=== PATIENT | male | born 1980 | race Caucasian/White ===

== ENCOUNTER 2022-08-10 14:22 | Inpatient (IN) | payer OTHER ==
[2022-08-10 16:32] VITALS: BMI 23.4
[2022-08-10] MEDS ORDERED: ONDANSETRON *ODT* 4 MG TABLET SL PRN (19:12)
[2022-08-10] MEDS ORDERED: BISMUTH SUBSALICYLATE 524 MG/30 ML PO PRN (19:12)
[2022-08-10] MEDS ORDERED: ACETAMINOPHEN 325 MG TABLET (FP) PO PRN (19:12)
[2022-08-10] MEDS ORDERED: BENZOCAINE/MENTHOL (CHLORASEPTIC ) LOZENGE MM PRN (19:12)
[2022-08-10] MEDS ORDERED: MAGNESIUM CITRATE 300 ML BOTTLE PO PRN (19:12)
[2022-08-10] MEDS ORDERED: NICOTINE 10 MG CARTRIDGE (INHALER) IH PRN (19:12)
[2022-08-10] MEDS ORDERED: LOPERAMIDE HCL 2 MG CAPSULE PO PRN (19:12)
[2022-08-10] MEDS ORDERED: DICYCLOMINE HCL 10 MG CAPSULE PO PRN (19:12)
[2022-08-10] MEDS ORDERED: chlordiazePOXIDE HCL 25 MG CAPSULE PO PRN (19:12)
[2022-08-10] MEDS ORDERED: chlordiazePOXIDE HCL 25 MG CAPSULE PO SCH (23:00)
[2022-08-11] MEDS: MELATONIN 5 MG TABLETS PO SCH ×2 (00:37→22:29)
[2022-08-11] MEDS: THIAMINE HCL 100 MG TABLET (FP) PO SCH ×2 (00:38→22:29)
[2022-08-11] MEDS: METHOCARBAMOL 500 MG TABLET PO PRN (00:38)
[2022-08-11] MEDS: hydrOXYzine PAMOATE 25 MG CAPSULE (FP) PO PRN (00:38)
[2022-08-11] MEDS: IBUPROFEN 600 MG TABLET (FP) PO PRN (00:39)
[2022-08-11] MEDS: chlordiazePOXIDE HCL 25 MG CAPSULE PO SCH ×5 (00:46→22:29)
[2022-08-11] MEDS: PRENATAL VITAMINS W/ FOLIC ACID TABLET (FP) PO SCH (10:50)
[2022-08-11] MEDS: NICOTINE 7 MG/24 HOURS TOPICAL PATCH TD SCH (10:52)
[2022-08-11 14:11] LABS: HEMATOCRIT 43.2 % (35.4-49); HEMOGLOBIN 14.1 GM/dL (11.7-16.9); MCH 28.8 pg (25.7-33.7); MCHC 32.7 g/dl (32.0-35.9); MEAN CELL VOLUME 88.1 fl (80-96); MEAN PLT VOLUME 7.7 fl (7.5-11.1); PLATELET COUNT 338 10^3/uL (134-434); RDW 13.6 % (11.9-15.9); WHITE BLOOD COUNT 3.1 K/mm3 (4.0-10.0)
[2022-08-11 14:28] LABS: BLOOD UREA NITROGEN 18.8 mg/dL (7-18); CALCIUM 8.5 mg/dL (8.5-10.1); CREATININE 0.8 mg/dL (0.55-1.3)
[2022-08-11 14:29] LABS: ALBUMIN 3.2 g/dl (3.4-5.0)
[2022-08-11 14:30] LABS: BILIRUBIN,TOTAL 0.2 mg/dL (0.2-1); TOT PROT 5.7 g/dl (6.4-8.2)
[2022-08-12] MEDS: chlordiazePOXIDE HCL 25 MG CAPSULE PO SCH ×4 (05:39→22:13)
[2022-08-12] MEDS: PRENATAL VITAMINS W/ FOLIC ACID TABLET (FP) PO SCH (10:41)
[2022-08-12] MEDS: NICOTINE 7 MG/24 HOURS TOPICAL PATCH TD SCH (10:41)
[2022-08-12] MEDS: MELATONIN 5 MG TABLETS PO SCH (22:12)
[2022-08-12] MEDS: THIAMINE HCL 100 MG TABLET (FP) PO SCH (22:12)
[2022-08-12] MEDS: SUVOREXANT 10 MG TABLET PO PRN (22:14)
[2022-08-13] MEDS ORDERED: chlordiazePOXIDE HCL 10 MG CAPSULE PO PRN
[2022-08-13] MEDS: chlordiazePOXIDE HCL 10 MG CAPSULE PO SCH ×4 (06:19→22:21)
[2022-08-13] MEDS: IBUPROFEN 400 MG TABLET (FP) PO PRN ×2 (06:19→22:19)
[2022-08-13] MEDS: METHOCARBAMOL 500 MG TABLET PO PRN ×2 (10:12→22:20)
[2022-08-13] MEDS: NICOTINE 7 MG/24 HOURS TOPICAL PATCH TD SCH (10:12)
[2022-08-13] MEDS: PRENATAL VITAMINS W/ FOLIC ACID TABLET (FP) PO SCH (10:12)
[2022-08-13] MEDS: hydrOXYzine PAMOATE 25 MG CAPSULE (FP) PO PRN (10:12)
[2022-08-13] MEDS: IBUPROFEN 600 MG TABLET (FP) PO PRN (17:36)
[2022-08-13] MEDS: SUVOREXANT 10 MG TABLET PO PRN (22:19)
[2022-08-13] MEDS: MELATONIN 5 MG TABLETS PO SCH (22:21)
[2022-08-13] MEDS: THIAMINE HCL 100 MG TABLET (FP) PO SCH (22:21)
[2022-08-14] MEDS: hydrOXYzine PAMOATE 25 MG CAPSULE (FP) PO PRN (03:46)
[2022-08-14] MEDS: ACETAMINOPHEN 325 MG TABLET (FP) PO PRN ×2 (03:46→17:58)
[2022-08-14] MEDS: MAG HYDROX/AL HYDROX/SIMETH 30 ML UNIT-DOSE CUP PO PRN (03:46)
[2022-08-14] MEDS: chlordiazePOXIDE HCL 10 MG CAPSULE PO SCH ×2 (05:46→17:57)
[2022-08-14] MEDS: PRENATAL VITAMINS W/ FOLIC ACID TABLET (FP) PO SCH (09:56)
[2022-08-14] MEDS: NICOTINE 7 MG/24 HOURS TOPICAL PATCH TD SCH (09:57)
[2022-08-14] MEDS: MAGNESIUM HYDROX 2400MG/30ML ORAL SUSPENSION 30 ML CUP PO PRN (18:00)
[2022-08-14] MEDS: THIAMINE HCL 100 MG TABLET (FP) PO SCH (22:15)
[2022-08-14] MEDS: MELATONIN 5 MG TABLETS PO SCH (22:15)
[2022-08-14] MEDS: METHOCARBAMOL 500 MG TABLET PO PRN (22:15)
[2022-08-15] MEDS ORDERED: chlordiazePOXIDE HCL 10 MG CAPSULE PO ONE (05:00)
[2022-08-15] MEDS: PRENATAL VITAMINS W/ FOLIC ACID TABLET (FP) PO SCH (10:27)
[2022-08-15] MEDS: NICOTINE 7 MG/24 HOURS TOPICAL PATCH TD SCH (10:28)
[2022-08-15] MEDS: ACETAMINOPHEN 325 MG TABLET (FP) PO PRN (10:30)
[2022-08-15 12:49] VITALS: RESP 18
[2022-08-15] MEDS: MELATONIN 5 MG TABLETS PO SCH (22:00)
[2022-08-15] MEDS: THIAMINE HCL 100 MG TABLET (FP) PO SCH (22:00)
[2022-08-15] MEDS: IBUPROFEN 600 MG TABLET (FP) PO PRN (22:03)
[2022-08-15] MEDS: METHOCARBAMOL 500 MG TABLET PO PRN (22:04)
[2022-08-16] MEDS: MAG HYDROX/AL HYDROX/SIMETH 30 ML UNIT-DOSE CUP PO PRN (06:23)
[2022-08-16] MEDS: NICOTINE 7 MG/24 HOURS TOPICAL PATCH TD SCH (10:29)
[2022-08-16] MEDS: PRENATAL VITAMINS W/ FOLIC ACID TABLET (FP) PO SCH (10:29)
[2022-08-16] MEDS: hydrOXYzine PAMOATE 25 MG CAPSULE (FP) PO PRN (10:29)
[2022-08-16] MEDS: MAGNESIUM HYDROX 2400MG/30ML ORAL SUSPENSION 30 ML CUP PO PRN (10:32)
[2022-08-16] MEDS ORDERED: LACTULOSE 20 GM/30 ML UDC (FOR ORAL USE ONLY) PO ONE (21:10)
[2022-08-16] MEDS ORDERED: DOCUSATE SODIUM 100 MG CAPSULE (FP) PO ONE (21:10)
[2022-08-16] MEDS: MELATONIN 5 MG TABLETS PO SCH (21:33)
[2022-08-16] MEDS: THIAMINE HCL 100 MG TABLET (FP) PO SCH (21:34)
[2022-08-17] MEDS: IBUPROFEN 600 MG TABLET (FP) PO PRN ×2 (01:24→10:33)
[2022-08-17] MEDS: PRENATAL VITAMINS W/ FOLIC ACID TABLET (FP) PO SCH (10:31)
[2022-08-17] MEDS: hydrOXYzine PAMOATE 25 MG CAPSULE (FP) PO PRN (10:31)
[2022-08-17] MEDS: NICOTINE 7 MG/24 HOURS TOPICAL PATCH TD SCH (10:31)
[2022-08-17] MEDS: MAGNESIUM HYDROX 2400MG/30ML ORAL SUSPENSION 30 ML CUP PO PRN (10:32)
[2022-08-17] MEDS: IBUPROFEN 400 MG TABLET (FP) PO PRN (21:27)
[2022-08-17] MEDS: THIAMINE HCL 100 MG TABLET (FP) PO SCH (21:27)
[2022-08-17] MEDS: MELATONIN 5 MG TABLETS PO SCH (21:27)
[2022-08-17] MEDS: MAG HYDROX/AL HYDROX/SIMETH 30 ML UNIT-DOSE CUP PO PRN (21:29)
[2022-08-18] MEDS: NICOTINE 7 MG/24 HOURS TOPICAL PATCH TD SCH (10:18)
[2022-08-18] MEDS: PRENATAL VITAMINS W/ FOLIC ACID TABLET (FP) PO SCH (10:18)
[2022-08-18] MEDS: hydrOXYzine PAMOATE 25 MG CAPSULE (FP) PO PRN (10:19)
[2022-08-18] MEDS: ACETAMINOPHEN 325 MG TABLET (FP) PO PRN ×2 (10:20→21:45)
[2022-08-18] MEDS: MAGNESIUM HYDROX 2400MG/30ML ORAL SUSPENSION 30 ML CUP PO PRN ×2 (10:21→21:48)
[2022-08-18] MEDS: MELATONIN 5 MG TABLETS PO SCH (21:44)
[2022-08-18] MEDS: THIAMINE HCL 100 MG TABLET (FP) PO SCH (21:44)
[2022-08-19] MEDS: NICOTINE 7 MG/24 HOURS TOPICAL PATCH TD SCH (10:14)
[2022-08-19] MEDS: PRENATAL VITAMINS W/ FOLIC ACID TABLET (FP) PO SCH (10:14)
[2022-08-19] MEDS: hydrOXYzine PAMOATE 25 MG CAPSULE (FP) PO PRN ×2 (10:15→21:43)
[2022-08-19] MEDS: MELATONIN 5 MG TABLETS PO SCH (21:40)
[2022-08-19] MEDS: THIAMINE HCL 100 MG TABLET (FP) PO SCH (21:40)
[2022-08-19] MEDS: ACETAMINOPHEN 325 MG TABLET (FP) PO PRN (21:41)
[2022-08-20] MEDS: PRENATAL VITAMINS W/ FOLIC ACID TABLET (FP) PO SCH (10:05)
[2022-08-20] MEDS: hydrOXYzine PAMOATE 25 MG CAPSULE (FP) PO PRN ×2 (10:05→21:27)
[2022-08-20] MEDS: NICOTINE 7 MG/24 HOURS TOPICAL PATCH TD SCH (10:05)
[2022-08-20] MEDS: ACETAMINOPHEN 325 MG TABLET (FP) PO PRN ×2 (10:07→21:28)
[2022-08-20] MEDS: THIAMINE HCL 100 MG TABLET (FP) PO SCH (21:27)
[2022-08-20] MEDS: MELATONIN 5 MG TABLETS PO SCH (21:27)
[2022-08-21] MEDS: NICOTINE 7 MG/24 HOURS TOPICAL PATCH TD SCH (10:21)
[2022-08-21] MEDS: PRENATAL VITAMINS W/ FOLIC ACID TABLET (FP) PO SCH (10:21)
[2022-08-21] MEDS: ACETAMINOPHEN 325 MG TABLET (FP) PO PRN ×2 (10:22→21:23)
[2022-08-21] MEDS: hydrOXYzine PAMOATE 25 MG CAPSULE (FP) PO PRN (10:23)
[2022-08-21] MEDS: MELATONIN 5 MG TABLETS PO SCH (21:23)
[2022-08-21] MEDS: THIAMINE HCL 100 MG TABLET (FP) PO SCH (21:23)
[2022-08-22] MEDS: hydrOXYzine PAMOATE 25 MG CAPSULE (FP) PO PRN ×3 (01:59→21:27)
[2022-08-22] MEDS: PRENATAL VITAMINS W/ FOLIC ACID TABLET (FP) PO SCH (10:10)
[2022-08-22] MEDS: NICOTINE 7 MG/24 HOURS TOPICAL PATCH TD SCH (10:10)
[2022-08-22] MEDS: ACETAMINOPHEN 325 MG TABLET (FP) PO PRN (10:11)
[2022-08-22] MEDS: LIDOCAINE 5% TOPICAL PATCH TP SCH (15:59)
[2022-08-22] MEDS: MELATONIN 5 MG TABLETS PO SCH (21:25)
[2022-08-22] MEDS: THIAMINE HCL 100 MG TABLET (FP) PO SCH (21:26)
[2022-08-22] MEDS: IBUPROFEN 600 MG TABLET (FP) PO PRN (21:28)
[2022-08-22] MEDS: LIDOCAINE PATCH REMOVAL MC SCH (21:34)
[2022-08-23] MEDS: PRENATAL VITAMINS W/ FOLIC ACID TABLET (FP) PO SCH (10:22)
[2022-08-23] MEDS: NICOTINE 7 MG/24 HOURS TOPICAL PATCH TD SCH (10:22)
[2022-08-23] MEDS: LIDOCAINE 5% TOPICAL PATCH TP SCH (10:23)
[2022-08-23] MEDS: ACETAMINOPHEN 325 MG TABLET (FP) PO PRN (10:24)
[2022-08-23] MEDS: hydrOXYzine PAMOATE 25 MG CAPSULE (FP) PO PRN ×3 (10:25→21:36)
[2022-08-23] MEDS: LIDOCAINE PATCH REMOVAL MC SCH (21:35)
[2022-08-23] MEDS: MELATONIN 5 MG TABLETS PO SCH (21:36)
[2022-08-23] MEDS: THIAMINE HCL 100 MG TABLET (FP) PO SCH (21:36)
[2022-08-24] MEDS: PRENATAL VITAMINS W/ FOLIC ACID TABLET (FP) PO SCH (10:20)
[2022-08-24] MEDS: LIDOCAINE 5% TOPICAL PATCH TP SCH (10:20)
[2022-08-24] MEDS: ACETAMINOPHEN 325 MG TABLET (FP) PO PRN ×2 (10:21→21:29)
[2022-08-24] MEDS: hydrOXYzine PAMOATE 25 MG CAPSULE (FP) PO PRN ×2 (10:21→21:28)
[2022-08-24] MEDS: NICOTINE 7 MG/24 HOURS TOPICAL PATCH TD SCH (10:21)
[2022-08-24] MEDS: THIAMINE HCL 100 MG TABLET (FP) PO SCH (21:28)
[2022-08-24] MEDS: MELATONIN 5 MG TABLETS PO SCH (21:29)
[2022-08-24] MEDS: LIDOCAINE PATCH REMOVAL MC SCH (21:32)
[2022-08-25] MEDS: PRENATAL VITAMINS W/ FOLIC ACID TABLET (FP) PO SCH (10:05)
[2022-08-25] MEDS: NICOTINE 7 MG/24 HOURS TOPICAL PATCH TD SCH (10:06)
[2022-08-25] MEDS: LIDOCAINE 5% TOPICAL PATCH TP SCH (10:06)
[2022-08-25] MEDS: hydrOXYzine PAMOATE 25 MG CAPSULE (FP) PO PRN ×2 (10:06→21:04)
[2022-08-25] MEDS: THIAMINE HCL 100 MG TABLET (FP) PO SCH (21:02)
[2022-08-25] MEDS: MELATONIN 5 MG TABLETS PO SCH (21:02)
[2022-08-25] MEDS: ACETAMINOPHEN 325 MG TABLET (FP) PO PRN (21:03)
[2022-08-25] MEDS: LIDOCAINE PATCH REMOVAL MC SCH (21:04)
[2022-08-26] MEDS: LIDOCAINE 5% TOPICAL PATCH TP SCH (10:42)
[2022-08-26] MEDS: NICOTINE 7 MG/24 HOURS TOPICAL PATCH TD SCH (10:42)
[2022-08-26] MEDS: PRENATAL VITAMINS W/ FOLIC ACID TABLET (FP) PO SCH (10:42)
[2022-08-26] MEDS: ACETAMINOPHEN 325 MG TABLET (FP) PO PRN (10:43)
[2022-08-26] MEDS: hydrOXYzine PAMOATE 25 MG CAPSULE (FP) PO PRN ×2 (10:43→20:10)
[2022-08-26] MEDS: IBUPROFEN 400 MG TABLET (FP) PO PRN (20:10)
[2022-08-26] MEDS: MELATONIN 5 MG TABLETS PO SCH (21:19)
[2022-08-26] MEDS: THIAMINE HCL 100 MG TABLET (FP) PO SCH (21:19)
[2022-08-26] MEDS: LIDOCAINE PATCH REMOVAL MC SCH (22:10)
[2022-08-27] MEDS: ACETAMINOPHEN 325 MG TABLET (FP) PO PRN ×2 (10:20→21:27)
[2022-08-27] MEDS: PRENATAL VITAMINS W/ FOLIC ACID TABLET (FP) PO SCH (10:20)
[2022-08-27] MEDS: hydrOXYzine PAMOATE 25 MG CAPSULE (FP) PO PRN ×2 (10:21→21:26)
[2022-08-27] MEDS: LIDOCAINE 5% TOPICAL PATCH TP SCH (10:21)
[2022-08-27] MEDS: NICOTINE 7 MG/24 HOURS TOPICAL PATCH TD SCH (10:21)
[2022-08-27] MEDS: THIAMINE HCL 100 MG TABLET (FP) PO SCH (21:25)
[2022-08-27] MEDS: MELATONIN 5 MG TABLETS PO SCH (21:25)
[2022-08-27] MEDS: LIDOCAINE PATCH REMOVAL MC SCH (23:04)
[2022-08-28] MEDS: ACETAMINOPHEN 325 MG TABLET (FP) PO PRN ×2 (10:01→21:35)
[2022-08-28] MEDS: PRENATAL VITAMINS W/ FOLIC ACID TABLET (FP) PO SCH (10:01)
[2022-08-28] MEDS: LIDOCAINE 5% TOPICAL PATCH TP SCH (10:03)
[2022-08-28] MEDS: hydrOXYzine PAMOATE 25 MG CAPSULE (FP) PO PRN ×2 (10:04→21:34)
[2022-08-28] MEDS: MELATONIN 5 MG TABLETS PO SCH (21:34)
[2022-08-28] MEDS: THIAMINE HCL 100 MG TABLET (FP) PO SCH (21:34)
[2022-08-28] MEDS: LIDOCAINE PATCH REMOVAL MC SCH (21:34)
[2022-08-29] MEDS: IBUPROFEN 400 MG TABLET (FP) PO PRN (01:25)
[2022-08-29] MEDS: PRENATAL VITAMINS W/ FOLIC ACID TABLET (FP) PO SCH (09:56)
[2022-08-29] MEDS: hydrOXYzine PAMOATE 25 MG CAPSULE (FP) PO PRN ×2 (09:56→21:42)
[2022-08-29] MEDS: ACETAMINOPHEN 325 MG TABLET (FP) PO PRN ×2 (09:57→21:42)
[2022-08-29] MEDS: LIDOCAINE 5% TOPICAL PATCH TP SCH (09:58)
[2022-08-29] MEDS: MAG HYDROX/AL HYDROX/SIMETH 30 ML UNIT-DOSE CUP PO PRN (10:00)
[2022-08-29] MEDS: LIDOCAINE PATCH REMOVAL MC SCH (21:42)
[2022-08-29] MEDS: THIAMINE HCL 100 MG TABLET (FP) PO SCH (21:42)
[2022-08-29] MEDS: MELATONIN 5 MG TABLETS PO SCH (21:43)
[2022-08-30 07:09] VITALS: BP 113/68; PULSE 71; TEMP 97.4
[2022-08-30] MEDS: hydrOXYzine PAMOATE 25 MG CAPSULE (FP) PO PRN (09:40)
[2022-08-30] MEDS: PRENATAL VITAMINS W/ FOLIC ACID TABLET (FP) PO SCH (09:40)
[2022-08-30] MEDS: LIDOCAINE 5% TOPICAL PATCH TP SCH (09:41)
[2022-08-30] MEDS: ACETAMINOPHEN 325 MG TABLET (FP) PO PRN (09:42)
== END 2022-08-30 10:15 | disposition home or self-care (01) | DRG 895 ==
LOC: YASAS 14:22 → Y3N 22:57 → UNDODISIN 08-15 19:55 → Y5N 08-15 20:23
PROVIDERS: ADMIT Allergy & Immunology; ATTEND Psychiatry & Neurology Pain Medicine
PROC: HZ42ZZZ Group Counseling for Substance Abuse Treatment, Cognitive-Behavioral (ICD-10-PCS; principal; 2022-08-10)
DX: F10.20 Alcohol dependence, uncomplicated (principal); F14.20 Cocaine dependence, uncomplicated; F12.10 Cannabis abuse, uncomplicated; F17.210 Nicotine dependence, cigarettes, uncomplicated; F19.24 Other psychoactive substance dependence with psychoactive substance-induced mood disorder; F41.9 Anxiety disorder, unspecified; G47.00 Insomnia, unspecified; K21.9 Gastro-esophageal reflux disease without esophagitis; M54.50 Low back pain, unspecified; S93.402A Sprain of unspecified ligament of left ankle, initial encounter; X50.1XXA Overexertion from prolonged static or awkward postures, initial encounter; Y93.89 Activity, other specified; Y92.231 Patient bathroom in hospital as the place of occurrence of the external cause
CPT/HCPCS: 36415; 80053; 85027; 86780; C9803-CS; U0003; U0005

== ENCOUNTER 2022-11-30 12:28 | Inpatient (IN) | payer OTHER ==
[2022-11-30 13:04] VITALS: BMI 22.8
[2022-11-30] MEDS ORDERED: MAGNESIUM HYDROX 2400MG/30ML ORAL SUSPENSION 30 ML CUP PO PRN (13:32)
[2022-11-30] MEDS ORDERED: IBUPROFEN 400 MG TABLET (FP) PO PRN (13:32)
[2022-11-30] MEDS ORDERED: ONDANSETRON *ODT* 4 MG TABLET SL PRN (13:32)
[2022-11-30] MEDS ORDERED: NALOXONE HCL (KLOXXADO) 8 MG SPRAY NS PRN (13:32)
[2022-11-30] MEDS ORDERED: DICYCLOMINE HCL 10 MG CAPSULE PO PRN (13:32)
[2022-11-30] MEDS ORDERED: IBUPROFEN 600 MG TABLET (FP) PO PRN (13:32)
[2022-11-30] MEDS ORDERED: NICOTINE 10 MG CARTRIDGE (INHALER) IH PRN (13:32)
[2022-11-30] MEDS ORDERED: BISMUTH SUBSALICYLATE 262 MG/15 ML BTL PO PRN (13:32)
[2022-11-30] MEDS ORDERED: BENZOCAINE/MENTHOL (CHLORASEPTIC ) LOZENGE MM PRN (13:32)
[2022-11-30] MEDS ORDERED: ACETAMINOPHEN 325 MG TABLET (FP) PO PRN (13:32)
[2022-11-30] MEDS ORDERED: LOPERAMIDE HCL 2 MG CAPSULE PO PRN (13:32)
[2022-11-30] MEDS: ACETAMINOPHEN 325 MG TABLET (FP) PO PRN (14:55)
[2022-11-30] MEDS: PRENATAL VITAMINS W/ FOLIC ACID TABLET (FP) PO SCH (15:08)
[2022-11-30] MEDS: hydrOXYzine PAMOATE 25 MG CAPSULE (FP) PO PRN (18:03)
[2022-11-30 19:04] LABS: HEMATOCRIT 40.2 % (35.4-49); HEMOGLOBIN 13.4 GM/dL (11.7-16.9); MCH 29.3 pg (25.7-33.7); MCHC 33.4 g/dl (32.0-35.9); MEAN CELL VOLUME 87.7 fl (80-96); MEAN PLT VOLUME 7.4 fl (7.5-11.1); PLATELET COUNT 456 10^3/uL (134-434); RBC 4.58 M/mm3 (4.00-5.60); WHITE BLOOD COUNT 4.3 K/mm3 (4.0-10.0)
[2022-11-30 19:13] LABS: ALBUMIN 3.6 g/dl (3.4-5.0)
[2022-11-30 19:15] LABS: BLOOD UREA NITROGEN 16.3 mg/dL (7-18)
[2022-11-30 19:16] LABS: CREATININE 0.9 mg/dL (0.55-1.3)
[2022-11-30 19:17] LABS: BILIRUBIN,TOTAL 0.4 mg/dL (0.2-1); TOT PROT 6.8 g/dl (6.4-8.2)
[2022-11-30] MEDS ORDERED: MELATONIN 5 MG TABLETS PO SCH (22:00)
[2022-11-30] MEDS: THIAMINE HCL 100 MG TABLET (FP) PO SCH (22:09)
[2022-12-01] MEDS ORDERED: chlordiazePOXIDE HCL 25 MG CAPSULE PO PRN (09:44)
[2022-12-01] MEDS: MAG HYDROX/AL HYDROX/SIMETH 30 ML UNIT-DOSE CUP PO PRN ×2 (10:12→17:42)
[2022-12-01] MEDS: METHOCARBAMOL 500 MG TABLET PO PRN (10:12)
[2022-12-01] MEDS: PRENATAL VITAMINS W/ FOLIC ACID TABLET (FP) PO SCH (10:12)
[2022-12-01] MEDS: hydrOXYzine PAMOATE 25 MG CAPSULE (FP) PO PRN (10:12)
[2022-12-01] MEDS: chlordiazePOXIDE HCL 25 MG CAPSULE PO SCH ×3 (10:13→22:18)
[2022-12-01] MEDS: THIAMINE HCL 100 MG TABLET (FP) PO SCH (22:16)
[2022-12-01] MEDS: SUVOREXANT 10 MG TABLET PO PRN ×2 (22:17→23:06)
[2022-12-02] MEDS: chlordiazePOXIDE HCL 25 MG CAPSULE PO SCH ×4 (05:18→22:15)
[2022-12-02] MEDS: METHOCARBAMOL 500 MG TABLET PO PRN (10:15)
[2022-12-02] MEDS: hydrOXYzine PAMOATE 25 MG CAPSULE (FP) PO PRN (10:15)
[2022-12-02] MEDS: PRENATAL VITAMINS W/ FOLIC ACID TABLET (FP) PO SCH (10:15)
[2022-12-02] MEDS: ACETAMINOPHEN 325 MG TABLET (FP) PO PRN (17:22)
[2022-12-02] MEDS ORDERED: P-EPHED 60MG/TRIPROLIDI 2.5MG TABLET PO PRN (17:50)
[2022-12-02] MEDS ORDERED: SUVOREXANT 15 MG TABLET PO PRN (22:00)
[2022-12-02] MEDS: THIAMINE HCL 100 MG TABLET (FP) PO SCH (22:15)
[2022-12-02] MEDS: MELATONIN 5 MG TABLETS PO SCH (22:16)
[2022-12-03] MEDS: chlordiazePOXIDE HCL 25 MG CAPSULE PO SCH ×4 (05:19→22:10)
[2022-12-03] MEDS: PRENATAL VITAMINS W/ FOLIC ACID TABLET (FP) PO SCH (10:10)
[2022-12-03] MEDS: hydrOXYzine PAMOATE 25 MG CAPSULE (FP) PO PRN (10:11)
[2022-12-03] MEDS: METHOCARBAMOL 500 MG TABLET PO PRN (10:11)
[2022-12-03] MEDS ORDERED: cloNIDine HCL 0.1 MG TABLET PO ONE (13:15)
[2022-12-03] MEDS: THIAMINE HCL 100 MG TABLET (FP) PO SCH (22:03)
[2022-12-03] MEDS: MELATONIN 5 MG TABLETS PO SCH (22:04)
[2022-12-04] MEDS ORDERED: chlordiazePOXIDE HCL 10 MG CAPSULE PO PRN
[2022-12-04] MEDS: chlordiazePOXIDE HCL 10 MG CAPSULE PO SCH ×4 (05:52→22:26)
[2022-12-04] MEDS: PRENATAL VITAMINS W/ FOLIC ACID TABLET (FP) PO SCH (10:12)
[2022-12-04] MEDS: hydrOXYzine PAMOATE 25 MG CAPSULE (FP) PO PRN (10:16)
[2022-12-04] MEDS: MELATONIN 5 MG TABLETS PO SCH (22:27)
[2022-12-04] MEDS: THIAMINE HCL 100 MG TABLET (FP) PO SCH (22:27)
[2022-12-04] MEDS: ACETAMINOPHEN 325 MG TABLET (FP) PO PRN (22:30)
[2022-12-05] MEDS: chlordiazePOXIDE HCL 10 MG CAPSULE PO SCH ×2 (05:24→17:21)
[2022-12-05] MEDS: PRENATAL VITAMINS W/ FOLIC ACID TABLET (FP) PO SCH (10:21)
[2022-12-05] MEDS: MAG HYDROX/AL HYDROX/SIMETH 30 ML UNIT-DOSE CUP PO PRN (10:22)
[2022-12-05] MEDS: hydrOXYzine PAMOATE 25 MG CAPSULE (FP) PO PRN (14:32)
[2022-12-05] MEDS: METHOCARBAMOL 500 MG TABLET PO PRN (14:33)
[2022-12-05] MEDS: MELATONIN 5 MG TABLETS PO SCH (22:19)
[2022-12-05] MEDS: THIAMINE HCL 100 MG TABLET (FP) PO SCH (22:19)
[2022-12-06] MEDS: ACETAMINOPHEN 325 MG TABLET (FP) PO PRN (03:57)
[2022-12-06] MEDS ORDERED: chlordiazePOXIDE HCL 10 MG CAPSULE PO ONE (05:00)
[2022-12-06] MEDS: PRENATAL VITAMINS W/ FOLIC ACID TABLET (FP) PO SCH (10:37)
[2022-12-06] MEDS: hydrOXYzine PAMOATE 25 MG CAPSULE (FP) PO PRN (18:05)
[2022-12-06] MEDS: POLYETHYLENE GLYCOL (HEALTHYLAX) 3350 17 GM PACKET PO PRN (18:05)
[2022-12-06] MEDS: MELATONIN 5 MG TABLETS PO SCH (21:33)
[2022-12-06] MEDS: THIAMINE HCL 100 MG TABLET (FP) PO SCH (21:33)
[2022-12-07] MEDS: hydrOXYzine PAMOATE 25 MG CAPSULE (FP) PO PRN ×2 (06:28→18:00)
[2022-12-07] MEDS: PRENATAL VITAMINS W/ FOLIC ACID TABLET (FP) PO SCH (10:01)
[2022-12-07 12:53] LABS: HIV INTERPRETATION NEGATIVE (NEGATIVE)
[2022-12-07] MEDS: POLYETHYLENE GLYCOL (HEALTHYLAX) 3350 17 GM PACKET PO PRN (14:31)
[2022-12-07] MEDS: MELATONIN 5 MG TABLETS PO SCH (21:24)
[2022-12-07] MEDS: THIAMINE HCL 100 MG TABLET (FP) PO SCH (21:24)
[2022-12-08] MEDS: hydrOXYzine PAMOATE 25 MG CAPSULE (FP) PO PRN ×3 (06:15→21:20)
[2022-12-08] MEDS: PRENATAL VITAMINS W/ FOLIC ACID TABLET (FP) PO SCH (10:15)
[2022-12-08] MEDS: MELATONIN 5 MG TABLETS PO SCH (21:20)
[2022-12-08] MEDS: THIAMINE HCL 100 MG TABLET (FP) PO SCH (21:20)
[2022-12-09] MEDS: hydrOXYzine PAMOATE 25 MG CAPSULE (FP) PO PRN ×3 (06:02→21:05)
[2022-12-09] MEDS: PRENATAL VITAMINS W/ FOLIC ACID TABLET (FP) PO SCH (10:11)
[2022-12-09] MEDS: MELATONIN 5 MG TABLETS PO SCH (21:04)
[2022-12-09] MEDS: THIAMINE HCL 100 MG TABLET (FP) PO SCH (21:04)
[2022-12-09] MEDS: MAG HYDROX/AL HYDROX/SIMETH 30 ML UNIT-DOSE CUP PO PRN (21:05)
[2022-12-10] MEDS: PRENATAL VITAMINS W/ FOLIC ACID TABLET (FP) PO SCH (09:39)
[2022-12-10] MEDS: hydrOXYzine PAMOATE 25 MG CAPSULE (FP) PO PRN (21:22)
[2022-12-10] MEDS: THIAMINE HCL 100 MG TABLET (FP) PO SCH (21:22)
[2022-12-10] MEDS: MELATONIN 5 MG TABLETS PO SCH (21:22)
[2022-12-11] MEDS: hydrOXYzine PAMOATE 25 MG CAPSULE (FP) PO PRN ×3 (06:21→21:20)
[2022-12-11] MEDS: PRENATAL VITAMINS W/ FOLIC ACID TABLET (FP) PO SCH (10:02)
[2022-12-11] MEDS: MELATONIN 5 MG TABLETS PO SCH (21:19)
[2022-12-11] MEDS: THIAMINE HCL 100 MG TABLET (FP) PO SCH (21:19)
[2022-12-12] MEDS: hydrOXYzine PAMOATE 25 MG CAPSULE (FP) PO PRN ×3 (06:28→21:09)
[2022-12-12] MEDS: ACETAMINOPHEN 325 MG TABLET (FP) PO PRN (06:29)
[2022-12-12] MEDS: PRENATAL VITAMINS W/ FOLIC ACID TABLET (FP) PO SCH (10:12)
[2022-12-12] MEDS: THIAMINE HCL 100 MG TABLET (FP) PO SCH (21:09)
[2022-12-12] MEDS: SUVOREXANT 10 MG TABLET PO PRN (21:10)
[2022-12-13] MEDS: hydrOXYzine PAMOATE 25 MG CAPSULE (FP) PO PRN ×3 (06:14→22:48)
[2022-12-13] MEDS: PRENATAL VITAMINS W/ FOLIC ACID TABLET (FP) PO SCH (09:58)
[2022-12-13] MEDS: COLLOIDAL OATMEAL 1 BAR EACH TP PRN (09:58)
[2022-12-13 18:47] LABS: PH,URINE 5.5 (5.0-8.0); URINE APPEARANCE CLEAR; URINE BILIRUBIN NEGATIVE (NEGATIVE); URINE COLOR YELLOW; URINE GLUCOSE (UA) NEGATIVE (NEGATIVE); URINE KETONE NEGATIVE (NEGATIVE); URINE LEUK ESTERASE NEGATIVE (NEGATIVE); URINE NITRITE NEGATIVE (NEGATIVE); URINE PROTEIN NEGATIVE (NEGATIVE); URINE UROBILINOGEN 0.2 mg/dL (0.2-1.0)
[2022-12-13] MEDS: THIAMINE HCL 100 MG TABLET (FP) PO SCH (21:10)
[2022-12-13] MEDS: SUVOREXANT 10 MG TABLET PO PRN (21:11)
[2022-12-14] MEDS: ACETAMINOPHEN 325 MG TABLET (FP) PO PRN ×2 (01:59→21:47)
[2022-12-14] MEDS: hydrOXYzine PAMOATE 25 MG CAPSULE (FP) PO PRN ×3 (06:42→21:45)
[2022-12-14] MEDS: PRENATAL VITAMINS W/ FOLIC ACID TABLET (FP) PO SCH (10:04)
[2022-12-14] MEDS: METHOCARBAMOL 500 MG TABLET PO PRN ×2 (10:05→21:45)
[2022-12-14] MEDS: THIAMINE HCL 100 MG TABLET (FP) PO SCH (21:44)
[2022-12-14] MEDS: SUVOREXANT 10 MG TABLET PO PRN (21:44)
[2022-12-15] MEDS: hydrOXYzine PAMOATE 25 MG CAPSULE (FP) PO PRN ×2 (06:11→14:23)
[2022-12-15] MEDS: ACETAMINOPHEN 325 MG TABLET (FP) PO PRN ×2 (06:11→14:23)
[2022-12-15] MEDS: PRENATAL VITAMINS W/ FOLIC ACID TABLET (FP) PO SCH (09:47)
[2022-12-15] MEDS: METHOCARBAMOL 500 MG TABLET PO PRN ×2 (09:48→21:24)
[2022-12-15] MEDS: MAG HYDROX/AL HYDROX/SIMETH 30 ML UNIT-DOSE CUP PO PRN (16:55)
[2022-12-15] MEDS: THIAMINE HCL 100 MG TABLET (FP) PO SCH (21:24)
[2022-12-15] MEDS: SUVOREXANT 10 MG TABLET PO PRN (21:25)
[2022-12-16] MEDS: hydrOXYzine PAMOATE 25 MG CAPSULE (FP) PO PRN ×3 (06:38→21:11)
[2022-12-16] MEDS: PRENATAL VITAMINS W/ FOLIC ACID TABLET (FP) PO SCH (10:21)
[2022-12-16] MEDS: METHOCARBAMOL 500 MG TABLET PO PRN ×2 (10:23→21:11)
[2022-12-16] MEDS: THIAMINE HCL 100 MG TABLET (FP) PO SCH (21:11)
[2022-12-16] MEDS: SUVOREXANT 10 MG TABLET PO PRN (21:12)
[2022-12-16] MEDS: COLLOIDAL OATMEAL 1 BAR EACH TP PRN (21:54)
[2022-12-17] MEDS: METHOCARBAMOL 500 MG TABLET PO PRN ×2 (06:15→21:26)
[2022-12-17] MEDS: hydrOXYzine PAMOATE 25 MG CAPSULE (FP) PO PRN ×2 (06:15→21:26)
[2022-12-17] MEDS: PRENATAL VITAMINS W/ FOLIC ACID TABLET (FP) PO SCH (10:24)
[2022-12-17] MEDS: THIAMINE HCL 100 MG TABLET (FP) PO SCH (21:26)
[2022-12-17] MEDS: SUVOREXANT 10 MG TABLET PO PRN (21:27)
[2022-12-18] MEDS: ACETAMINOPHEN 325 MG TABLET (FP) PO PRN (00:36)
[2022-12-18] MEDS: hydrOXYzine PAMOATE 25 MG CAPSULE (FP) PO PRN ×3 (06:58→21:58)
[2022-12-18] MEDS: METHOCARBAMOL 500 MG TABLET PO PRN ×2 (06:58→21:58)
[2022-12-18 07:03] VITALS: RESP 20
[2022-12-18] MEDS: PRENATAL VITAMINS W/ FOLIC ACID TABLET (FP) PO SCH (09:56)
[2022-12-18] MEDS: THIAMINE HCL 100 MG TABLET (FP) PO SCH (21:58)
[2022-12-18] MEDS: SUVOREXANT 10 MG TABLET PO PRN (21:59)
[2022-12-19] MEDS: hydrOXYzine PAMOATE 25 MG CAPSULE (FP) PO PRN ×2 (06:18→09:29)
[2022-12-19] MEDS: PRENATAL VITAMINS W/ FOLIC ACID TABLET (FP) PO SCH (09:28)
[2022-12-19] MEDS: METHOCARBAMOL 500 MG TABLET PO PRN ×2 (09:28→21:54)
[2022-12-19] MEDS: THIAMINE HCL 100 MG TABLET (FP) PO SCH (21:54)
[2022-12-19] MEDS ORDERED: SUVOREXANT 10 MG TABLET PO PRN (22:00)
[2022-12-20] MEDS: METHOCARBAMOL 500 MG TABLET PO PRN (01:06)
[2022-12-20] MEDS: hydrOXYzine PAMOATE 25 MG CAPSULE (FP) PO PRN (03:18)
[2022-12-20] MEDS: ACETAMINOPHEN 325 MG TABLET (FP) PO PRN (03:18)
[2022-12-20 06:58] VITALS: BP 131/66; PULSE 74; TEMP 97.9
[2022-12-20] MEDS: PRENATAL VITAMINS W/ FOLIC ACID TABLET (FP) PO SCH (09:06)
== END 2022-12-20 09:32 | disposition home or self-care (01) | DRG 895 ==
LOC: YASAS 12:28 → Y6N 13:48 → Y3E 12-06 11:53
PROVIDERS: ADMIT Allergy & Immunology; ATTEND Allergy & Immunology
PROC: HZ2ZZZZ Detoxification Services for Substance Abuse Treatment (ICD-10-PCS; 2022-11-30)
PROC: HZ42ZZZ Group Counseling for Substance Abuse Treatment, Cognitive-Behavioral (ICD-10-PCS; principal; 2022-12-06)
DX: F10.20 Alcohol dependence, uncomplicated (principal); F14.20 Cocaine dependence, uncomplicated; F19.280 Other psychoactive substance dependence with psychoactive substance-induced anxiety disorder; F12.20 Cannabis dependence, uncomplicated; F17.210 Nicotine dependence, cigarettes, uncomplicated; F19.24 Other psychoactive substance dependence with psychoactive substance-induced mood disorder; G47.00 Insomnia, unspecified; K21.9 Gastro-esophageal reflux disease without esophagitis; M54.50 Low back pain, unspecified; G89.29 Other chronic pain; R07.9 Chest pain, unspecified; R30.0 Dysuria; R35.0 Frequency of micturition; Z56.0 Unemployment, unspecified; Z59.00 Homelessness unspecified
CPT/HCPCS: 36415; 80053; 81003; 83036; 85027; 86780; 87086; 87389; 87811; C9803-CS; U0003; U0005

== ENCOUNTER 2024-02-11 17:57 | Inpatient (IN) | payer OTHER ==
[2024-02-11 18:34] VITALS: BMI 22.9
[2024-02-11] MEDS ORDERED: BENZOCAINE/MENTHOL (CHLORASEPTIC ) LOZENGE MM PRN (21:21)
[2024-02-11] MEDS ORDERED: NICOTINE POLACRILEX 2 MG GUM BUC PRN (21:21)
[2024-02-11] MEDS ORDERED: NALOXONE HCL 0.4 MG/ML VIAL IM PRN (21:21)
[2024-02-11] MEDS ORDERED: BENZONATATE 200 MG CAPSULE PO PRN (21:21)
[2024-02-11] MEDS ORDERED: ONDANSETRON *ODT* 4 MG TABLET SL PRN (21:21)
[2024-02-11] MEDS ORDERED: IBUPROFEN 400 MG TABLET (FP) PO PRN (21:21)
[2024-02-11] MEDS ORDERED: DICYCLOMINE HCL 10 MG CAPSULE PO PRN (21:21)
[2024-02-11] MEDS ORDERED: guaiFENesin 600 MG TABLET.ER (FP) PO PRN (21:21)
[2024-02-11] MEDS ORDERED: BISMUTH SUBSALICYLATE 524 MG/30 ML PO PRN (21:21)
[2024-02-11] MEDS ORDERED: LOPERAMIDE HCL 2 MG CAPSULE PO PRN (21:21)
[2024-02-11] MEDS ORDERED: NALOXONE HCL (KLOXXADO) 8 MG SPRAY NS PRN (21:21)
[2024-02-11] MEDS: IBUPROFEN 600 MG TABLET (FP) PO PRN (21:58)
[2024-02-11] MEDS: MELATONIN 5 MG TABLETS PO SCH (22:23)
[2024-02-11] MEDS: THIAMINE 100 MG TABLET PO SCH (22:23)
[2024-02-11] MEDS: MAGNESIUM HYDROX 2400MG/30ML ORAL SUSPENSION 30 ML CUP PO PRN (22:24)
[2024-02-12] MEDS: POLYETHYLENE GLYCOL (HEALTHYLAX) 3350 17 GM PACKET PO PRN (02:45)
[2024-02-12] MEDS: NICOTINE 21 MG/24 HOURS TOPICAL PATCH TD SCH (10:13)
[2024-02-12] MEDS: PRENATAL VITAMINS W/ FOLIC ACID TABLET (FP) PO SCH (10:16)
[2024-02-12] MEDS ORDERED: chlordiazePOXIDE HCL 25 MG CAPSULE PO PRN (10:39)
[2024-02-12 11:13] LABS: HEMATOCRIT 42.5 % (35.4-49); HEMOGLOBIN 14.3 GM/dL (11.7-16.9); MCH 29.6 pg (25.7-33.7); MCHC 33.7 g/dl (32.0-35.9); MEAN PLT VOLUME 7.4 fl (7.5-11.1); PLATELET COUNT 363 10^3/uL (134-434); RBC 4.83 M/mm3 (4.00-5.60); RDW 13.9 % (11.9-15.9); WHITE BLOOD COUNT 4.2 K/mm3 (4.0-10.0)
[2024-02-12 11:18] LABS: CHLORIDE 112 mmol/L (98-107); POTASSIUM 4.6 mmol/L (3.5-5.1); SODIUM 143 mmol/L (136-145)
[2024-02-12 11:21] LABS: ALBUMIN 3.2 g/dl (3.4-5.0); ANION GAP 5 mmol/L (4-13); BLOOD UREA NITROGEN 23.8 mg/dL (7-18); CALCIUM 8.6 mg/dL (8.5-10.1); CO2 27 mmol/L (21-32); GLUCOSE,RANDOM 87 mg/dL (74-106)
[2024-02-12] MEDS: chlordiazePOXIDE HCL 25 MG CAPSULE PO SCH (11:21)
[2024-02-12 11:24] LABS: CREATININE 0.8 mg/dL (0.55-1.3); SGOT/AST 34 U/L (15-37); SGPT/ALT 43 U/L (13-61)
[2024-02-12 11:25] LABS: BILIRUBIN,TOTAL 0.2 mg/dL (0.2-1)
[2024-02-12 11:27] LABS: ALK PHOS 68 U/L (45-117)
[2024-02-12] MEDS: PHENYLEPH/MINERAL OIL/PETROLAT 28 GM OINTMENT RC SCH (12:42)
[2024-02-13] MEDS: METHOCARBAMOL 500 MG TABLET PO PRN (06:37)
[2024-02-13] MEDS: ACETAMINOPHEN 325 MG TABLET (FP) PO PRN (10:21)
[2024-02-13] MEDS: MAG HYDROX/AL HYDROX/SIMETH 30 ML UNIT-DOSE CUP PO PRN (22:17)
[2024-02-14] MEDS: chlordiazePOXIDE HCL 25 MG CAPSULE PO SCH (05:53)
[2024-02-14 13:12] LABS: HIV INTERPRETATION NEGATIVE (NEGATIVE)
[2024-02-15] MEDS ORDERED: chlordiazePOXIDE HCL 10 MG CAPSULE PO PRN
[2024-02-15] MEDS: chlordiazePOXIDE HCL 10 MG CAPSULE PO SCH (05:38)
[2024-02-16] MEDS: hydrOXYzine PAMOATE 25 MG CAPSULE (FP) PO PRN (03:29)
[2024-02-16] MEDS: chlordiazePOXIDE HCL 10 MG CAPSULE PO SCH (05:33)
[2024-02-16 05:47] VITALS: BP 122/77; PULSE 61; RESP 16; TEMP 97.6
[2024-02-17] MEDS ORDERED: chlordiazePOXIDE HCL 10 MG CAPSULE PO ONE (05:00)
== END 2024-02-16 15:43 | disposition short-term general hospital (02) | DRG 897 ==
LOC: YASAS 17:57 → Y3N 21:35
PROVIDERS: ADMIT Allergy & Immunology; ATTEND Surgery
PROC: HZ2ZZZZ Detoxification Services for Substance Abuse Treatment (ICD-10-PCS; principal; 2024-02-11)
DX: F10.230 Alcohol dependence with withdrawal, uncomplicated (principal); F14.20 Cocaine dependence, uncomplicated; Z59.00 Homelessness unspecified; F12.20 Cannabis dependence, uncomplicated; F17.210 Nicotine dependence, cigarettes, uncomplicated; F41.9 Anxiety disorder, unspecified; G47.00 Insomnia, unspecified; K21.9 Gastro-esophageal reflux disease without esophagitis; K64.9 Unspecified hemorrhoids; R55 Syncope and collapse; Z91.81 History of falling; Z99.89 Dependence on other enabling machines and devices; Z56.0 Unemployment, unspecified
CPT/HCPCS: 36415; 80053; 80307; 85027; 86780; 87389; 93005; 93010

== ENCOUNTER 2024-02-16 06:36 | Observation (INO) | payer OTHER ==
[2024-02-16 06:45] VITALS: BMI 23.1
[2024-02-16 08:22] LABS: BASO % 1.3 % (0-2.0); HEMATOCRIT 40.3 % (35.4-49); HEMOGLOBIN 13.5 GM/dL (11.7-16.9); LYMPH % 41.3 % (8-40); MCH 29.6 pg (25.7-33.7); MCHC 33.5 g/dl (32.0-35.9); MEAN CELL VOLUME 88.4 fl (80-96); MEAN PLT VOLUME 6.9 fl (7.5-11.1); NEUT % 44.4 % (42.8-82.8); PLATELET COUNT 335 10^3/uL (134-434); RBC 4.56 M/mm3 (4.00-5.60); RDW 14.1 % (11.9-15.9); WHITE BLOOD COUNT 3.6 K/mm3 (4.0-10.0)
[2024-02-16 08:36] LABS: POTASSIUM 4.8 mmol/L (3.5-5.1)
[2024-02-16 08:39] LABS: CALCIUM 9.3 mg/dL (8.5-10.1)
[2024-02-16 08:40] LABS: ALBUMIN 3.3 g/dl (3.4-5.0); BLOOD UREA NITROGEN 25.6 mg/dL (7-18); MAGNESIUM 2.2 mg/dL (1.8-2.4)
[2024-02-16 08:43] LABS: CREATININE 0.7 mg/dL (0.55-1.3)
[2024-02-16 08:45] LABS: BILIRUBIN,TOTAL 0.2 mg/dL (0.2-1)
[2024-02-16] MEDS ORDERED: ACETAMINOPHEN 325 MG TABLET (FP) ONE (10:00)
[2024-02-16] MEDS: ACETAMINOPHEN 325 MG TABLET (FP) PO ONE (10:05)
[2024-02-16] MEDS: LACTATED RINGERS SOLUTION 1000 ML INFUS.BAG IV ONE (10:12)
[2024-02-16] MEDS ORDERED: PHENYLEPHRINE HCL/COCOA BUTTER 1 EACH SUPP.RECT RC PRN (13:01)
[2024-02-16] MEDS: SODIUM CHLORIDE 1,000 ML IV SCH (13:40)
[2024-02-16] MEDS ORDERED: THIAMINE 100 MG TABLET ONE (13:51)
[2024-02-16] MEDS ORDERED: FOLIC ACID 1 MG TABLET (FP) ONE (13:52)
[2024-02-16] MEDS: FOLIC ACID 1 MG TABLET (FP) PO SCH (13:57)
[2024-02-16] MEDS: THIAMINE 100 MG TABLET PO SCH (13:57)
[2024-02-16] MEDS: chlordiazePOXIDE HCL 10 MG CAPSULE PO SCH (16:25)
[2024-02-16] MEDS: POLYETHYLENE GLYCOL (HEALTHYLAX) 3350 17 GM PACKET PO PRN (17:02)
[2024-02-17] MEDS: MELATONIN 5 MG TABLETS PO SCH (01:12)
[2024-02-17 08:49] LABS: BASO % 1.1 % (0-2.0); EOS % 2.3 % (0-4.5); HEMATOCRIT 40.8 % (35.4-49); LYMPH % 38.6 % (8-40); MCHC 34.4 g/dl (32.0-35.9); MEAN CELL VOLUME 87.1 fl (80-96); MEAN PLT VOLUME 6.6 fl (7.5-11.1); MONO % 8.4 % (3.8-10.2); NEUT % 49.6 % (42.8-82.8); PLATELET COUNT 358 10^3/uL (134-434); RBC 4.68 M/mm3 (4.00-5.60); RDW 13.9 % (11.9-15.9); WHITE BLOOD COUNT 3.6 K/mm3 (4.0-10.0)
[2024-02-17 09:05] LABS: POTASSIUM 4.2 mmol/L (3.5-5.1)
[2024-02-17 09:12] LABS: CALCIUM 9.4 mg/dL (8.5-10.1)
[2024-02-17 09:13] LABS: BLOOD UREA NITROGEN 17.5 mg/dL (7-18)
[2024-02-17 09:16] LABS: CREATININE 0.9 mg/dL (0.55-1.3)
[2024-02-17] MEDS: ENOXAPARIN NA (PORCINE) 40 MG/0.4 ML DISP.SYRIN SQ SCH (09:32)
[2024-02-17] MEDS ORDERED: ACETAMINOPHEN 325 MG TABLET (FP) PO PRN (09:53)
[2024-02-17] MEDS: POLYETHYLENE GLYCOL (HEALTHYLAX) 3350 17 GM PACKET PO SCH (14:26)
[2024-02-17] MEDS: DOCUSATE SODIUM 100 MG CAPSULE (FP) PO SCH (14:26)
[2024-02-17 15:35] VITALS: BP 124/77; PULSE 75; RESP 20; TEMP 98
[2024-02-17] MEDS: BISACODYL 10 MG SUPP.RECT PR ONE (15:35)
[2024-02-17] MEDS ORDERED: MELATONIN 5 MG TABLETS PO SCH (22:00)
== END 2024-02-17 16:15 | disposition other institution (70) ==
LOC: JER 06:36 → JERBED 11:07 → J4W 14:24
PROVIDERS: ADMIT Internal Medicine; ATTEND Internal Medicine
PROC: 3E023GC Introduction of Other Therapeutic Substance into Muscle, Percutaneous Approach (ICD-10-PCS; principal; 2024-02-16)
PROC: 3E0337Z Introduction of Electrolytic and Water Balance Substance into Peripheral Vein, Percutaneous Approach (ICD-10-PCS; 2024-02-16)
DX: S09.90XA Unspecified injury of head, initial encounter (principal); F14.10 Cocaine abuse, uncomplicated; F19.10 Other psychoactive substance abuse, uncomplicated; R55 Syncope and collapse; E86.0 Dehydration; I25.2 Old myocardial infarction; F17.210 Nicotine dependence, cigarettes, uncomplicated; W18.39XA Other fall on same level, initial encounter; Y93.89 Activity, other specified; Y92.238 Other place in hospital as the place of occurrence of the external cause
CPT/HCPCS: 0241U-QW; 36415; 70450-TC; 71045-TC-FY; 72125-TC; 80048; 80053; 83735; 84484; 85025; 93005; 93010; 93306-TC; 96360; 96361; 96372; 99285-25; G0378

== ENCOUNTER 2024-02-17 16:50 | Inpatient (IN) | payer OTHER ==
[2024-02-17 17:58] VITALS: BMI 23.4
[2024-02-17] MEDS ORDERED: LOPERAMIDE HCL 2 MG CAPSULE PO PRN (18:10)
[2024-02-17] MEDS ORDERED: IBUPROFEN 400 MG TABLET (FP) PO PRN (18:10)
[2024-02-17] MEDS ORDERED: guaiFENesin 600 MG TABLET.ER (FP) PO PRN (18:10)
[2024-02-17] MEDS ORDERED: BENZONATATE 200 MG CAPSULE PO PRN (18:10)
[2024-02-17] MEDS ORDERED: BENZOCAINE/MENTHOL (CHLORASEPTIC ) LOZENGE MM PRN (18:10)
[2024-02-17] MEDS ORDERED: BISACODYL 5 MG TABLET.DR (FP) PO PRN (18:10)
[2024-02-17] MEDS ORDERED: PATIENT'S OWN MEDICATION (NON-FORMULARY) (Polyethylene Glycol 3350 119 GM Bottle) PO PRN (18:29)
[2024-02-17] MEDS ORDERED: IBUPROFEN 600 MG TABLET (FP) PO ONE (19:29)
[2024-02-17] MEDS: IBUPROFEN 600 MG TABLET (FP) PO PRN (19:35)
[2024-02-17] MEDS: DOCUSATE SODIUM 100 MG CAPSULE (FP) PO ONE (20:28)
[2024-02-17] MEDS: LACTULOSE 20 GM/30 ML UDC (FOR ORAL USE ONLY) PO ONE (22:47)
[2024-02-17] MEDS: THIAMINE 100 MG TABLET PO SCH (22:47)
[2024-02-17] MEDS: MELATONIN 5 MG TABLETS PO SCH (22:47)
[2024-02-17] MEDS: DOCUSATE SODIUM 100 MG CAPSULE (FP) PO SCH (22:48)
[2024-02-17] MEDS: METHOCARBAMOL 500 MG TABLET PO PRN (22:52)
[2024-02-17] MEDS: PHENYLEPH/MINERAL OIL/PETROLAT 28 GM OINTMENT RC SCH (23:00)
[2024-02-18] MEDS: PRENATAL VITAMINS W/ FOLIC ACID TABLET (FP) PO SCH (10:19)
[2024-02-19] MEDS: hydrOXYzine PAMOATE 25 MG CAPSULE (FP) PO PRN (00:45)
[2024-02-19] MEDS: ACETAMINOPHEN 325 MG TABLET (FP) PO PRN (00:45)
[2024-02-19] MEDS: POLYETHYLENE GLYCOL (HEALTHYLAX) 3350 17 GM PACKET PO PRN (09:36)
[2024-02-21] MEDS: hydrOXYzine PAMOATE 25 MG CAPSULE (FP) PO PRN (19:10)
[2024-02-21] MEDS: MELATONIN 5 MG TABLETS PO SCH (21:51)
[2024-02-22] MEDS: MAG HYDROX/AL HYDROX/SIMETH 30 ML UNIT-DOSE CUP PO PRN (23:57)
[2024-02-23] MEDS: BACLOFEN 10 MG TABLET (FP) PO SCH (21:26)
[2024-02-23] MEDS: TOLNAFTATE 1% CREAM 15 GM TUBE TP SCH (21:27)
[2024-02-25] MEDS: MAGNESIUM HYDROX 2400MG/30ML ORAL SUSPENSION 30 ML CUP PO PRN (15:15)
[2024-02-29] MEDS: valACYclovir HCL 500 MG TABLET (FP) PO SCH (17:05)
[2024-03-01] MEDS: valACYclovir HCL 500 MG TABLET (FP) PO SCH (06:19)
[2024-03-04] MEDS: BENZOCAINE 28 GM HEMORRHOIDAL OINTMENT RC PRN (10:28)
[2024-03-05] MEDS: SIMETHICONE 80 MG TAB.CHEW (FP) PO PRN (21:41)
[2024-03-07 07:03] VITALS: TEMP 97.3
[2024-03-09 07:27] VITALS: BP 132/84; PULSE 77; RESP 20
== END 2024-03-09 09:38 | disposition home or self-care (01) | DRG 895 ==
LOC: YASAS 16:50 → Y3NR 19:44 → Y3W 02-18 13:48
PROVIDERS: ADMIT Allergy & Immunology; ATTEND Psychiatry & Neurology Pain Medicine
PROC: HZ42ZZZ Group Counseling for Substance Abuse Treatment, Cognitive-Behavioral (ICD-10-PCS; principal; 2024-02-17)
DX: F10.20 Alcohol dependence, uncomplicated (principal); F14.20 Cocaine dependence, uncomplicated; F19.282 Other psychoactive substance dependence with psychoactive substance-induced sleep disorder; F19.280 Other psychoactive substance dependence with psychoactive substance-induced anxiety disorder; F12.20 Cannabis dependence, uncomplicated; F17.210 Nicotine dependence, cigarettes, uncomplicated; F41.9 Anxiety disorder, unspecified; F32.A Depression, unspecified; G47.00 Insomnia, unspecified; B35.1 Tinea unguium; B35.3 Tinea pedis; M54.50 Low back pain, unspecified; G89.29 Other chronic pain; Z87.820 Personal history of traumatic brain injury
CPT/HCPCS: 36415; 80305; 83036; 86695; 86696; J0475